=== PATIENT | male | born 1990 | race Caucasian/White ===

== ENCOUNTER 2017-01-31 10:11 | Emergency (ER) | payer OTHER ==
[2017-01-31 10:23] VITALS: RESP 18
[2017-01-31] MEDS ORDERED: SODIUM CHLORIDE 0.9% 1,000 ML IV STA ×2 (10:40)
[2017-01-31] MEDS ORDERED: ONDANSETRON 4 MG/2 ML VIAL IVP STA (10:40)
[2017-01-31] MEDS ORDERED: ACETAMINOPHEN IV (For NPO) 1,000 MG in SALINE 100 100ML.BAG IVPB STA (10:41)
[2017-01-31] MEDS ORDERED: RX INFO: IV CONTRAST WAS GIVEN 1 EACH MISC MISCELLANE PRN (10:41)
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
[2017-01-31 10:55] LABS: Basophils # (A) 0.1 k/uL (0-0.2); Basophils % (A) 1 %; CH 29.5; CHCM 34.5; Eosinophils # (A) 0.3 k/uL (0-0.7); Eosinophils % (A) 3 %; HCT 46.6 % (39.0-53.0); HDW 2.49; HGB 15.2 gm/dL (13.0-17.5); Luc # (Auto) 0.16; Luc % (Auto) 2; Lymphocytes # (A) 1.9 k/uL (1.0-4.8); Lymphocytes % (A) 20 %; MCH 28.1 pg (25.0-35.0); MCHC 32.7 g/dL (31.0-37.0); MCV 85.9 fL (80.0-100.0); Mean Platelet Volume 7.2; Monocytes # (A) 0.5 k/uL (0-1.0); Monocytes % (A) 5 %; Neutrophils # (A) 6.8 k/uL (1.3-7.7); Neutrophils % (A) 70 %; RBC 5.43 m/uL (4.30-5.90); RDW 14.1 % (11.5-15.5); WBC 9.7 k/uL (3.8-10.6); WBC (Perox) 9.42
[2017-01-31 11:07] LABS: ALT 48 U/L (21-72); AST 19 U/L (17-59); Alkaline Phosphatase 58 U/L (38-126); Amylase 102 U/L (30-110); Anion Gap 7 mmol/L; Blood Urea Nitrogen 8 mg/dL (9-20); Calcium 9.4 mg/dL (8.4-10.2); Carbon Dioxide 24 mmol/L (22-30); Chloride 107 mmol/L (98-107); Glucose 98 mg/dL (74-99); Non-African American GFR(MDRD) >60 (>60 ml/min/1.73 sqM); Potassium 4.8 mmol/L (3.5-5.1); Sodium 138 mmol/L (137-145); Total Bilirubin 0.4 mg/dL (0.2-1.3); Total Protein 6.9 g/dL (6.3-8.2)
--- NOTE | 2017-01-31 11:29 | CT ---
EXAMINATION TYPE: CT abdomen pelvis w con DATE OF EXAM: 01/31/2017 COMPARISON: NONE INDICATION: pain and constipation for 1 week DLP: 614.4 mGycm, Automated exposure control for dose reduction was used. CONTRAST: 100 mL of Omnipaque 300. Study performed without Oral Contrast TECHNIQUE: Axial images were obtained from above the diaphragm to the pubic rami in the axial plane a t 5 mm thick sections. Reconstructed images are reviewed on the computer in the coronal plane. FINDINGS: Limited CT sections are obtained the lung bases. The lung bases are clear. CT ABDOMEN: Liver: There are multiple scattered hypodensities throughout the liver, largest measuring 1.9 cm in s ize posterior right upper lobe liver. Findings are likely related to multiple hepatic cysts. Spleen: Normal Pancreas: Normal Adrenal glands: The adrenal glands are normal. Gallbladder: Normal Kidneys: No masses are evident. No hydronephrosis is present. No cysts are present. Delayed images were obtained through the kidneys, which remain unremarkable. Aorta: Normal Inferior vena cava: Normal. CT PELVIS: Loops of bowel within the abdomen and pelvis are normal. Significant fecal retention is not evide nt. Colon is decompressed. There are a few scattered diverticuli present. Appendix: Normal as visualized. Urinary bladder: Normal. Genitourinary structures: There is normal Osseous structures: No suspicious lytic or sclerotic lesions. IMPRESSIONS: 1. No acute process. 2. Multiple hepatic cysts.
[2017-01-31 11:36] LABS: Appearance,Urine Clear (Clear); Bilirubin,Urine Negative (Negative); Glucose,Urine (UA) Negative (Negative); Ketones,Urine Negative (Negative); Leukocyte Esterase,Urine Negative (Negative); Nitrite,Urine Negative (Negative); PH, Urine 7.5 (5.0-8.0); Protein,Urine Negative (Negative); Specific Gravity,Urine 1.034 (1.001-1.035); UA Billing (MACRO vs. MICRO) CHEM; Urobilinogen,Urine <2.0 mg/dL (<2.0)
[2017-01-31] MEDS ORDERED: KETOROLAC 30 MG/ML 1 ML VIAL IVP STA (11:40)
[2017-01-31] MEDS ORDERED: HYDROmorphone 1 MG/ML 1 ML SYRINGE IVP STA (11:40)
[2017-01-31 12:26] VITALS: BP 116/60; PULSE 57; TEMP 98.3
== END 2017-01-31 12:44 | disposition home or self-care (01) ==
LOC: EC 10:11
DX: K85.90 Acute pancreatitis without necrosis or infection, unspecified (principal); F17.200 Nicotine dependence, unspecified, uncomplicated
CPT/HCPCS: 99284; 96374; 96375 ×3; 96361 ×2; 36415; 80053; 82150; 83690; 85025; 81003; 74177; J2405; J1885; J1170; Q9967; J0131

== ENCOUNTER 2017-02-25 10:51 | Day surgery (SDC) | payer OTHER ==
[2017-02-24 09:40] VITALS: BMI 25.4
[~2017-02-25 10:51] MED LIST: LACTATED RINGERS 1,000 ML IV SCH; LIDOCAINE 1% 20 ML VIAL (10MG/ML) FOR IV START INTRADERMA PRN
[2017-02-25 11:01] VITALS: RESP 18; TEMP 98.3
[2017-02-25] MEDS ORDERED: PROPOFOL 10 MG/ML 20 ML VIAL IV ONE (11:27)
--- NOTE | 2017-02-25 11:53 | P.PCN ---
Date of Procedure: 02/25/17 Procedure(s) Performed: Procedure: Esophagogastroduodenoscopy and biopsy. Preoperative diagnosis: Epigastric pain, rule out peptic ulcer disease. Postoperative diagnosis: 1. Small sliding hiatal hernia but no obvious esophagitis or complicated reflux disease. 2. Mild antral gastritis with no ulcers or gastric outlet obstruction. 3. Multiple biopsies obtained from the duodenum, antrum and esophagus. Preparation and sedation: Was provided by anesthesia. Brief clinical history: The patient is a 26-year-old male who was recently evaluated in the office for epigastric pain. He was started on omeprazole and scheduled for this evaluation to rule out peptic ulcer disease or other pathology. No alarm symptoms. Has been gradually improving with omeprazole. Procedure: With the patient on his left lateral decubitus position and after informed consent and adequate sedation I passed the Olympus-GIF 160 video upper endoscope through the cricopharyngeus down the esophagus. GE junction was around 40-41 cm from the incisors and there was a small sliding hiatal hernia. The endoscope was then passed into the stomach which was associated with air and inspected in detail including the retroflex view in the cardia. There was minimal mottling and erythema in the antrum but no ulcers or erosions. Pyloric channel, duodenal bulb, post bulbar area and descending duodenum showed no obvious abnormalities. Because of his symptoms, I obtained biopsies from the duodenum, antrum and esophagus then the endoscope was withdrawn. The patient tolerated the procedure well. The patient tolerated the procedure well. Plan: The patient was reassured. Will await biopsy results. He is scheduled to follow-up in the office later this month and I asked that he keeps this appointment. We will keep you updated on his progress.
[2017-02-25 12:15] VITALS: BP 109/70; PULSE 74
== END 2017-02-25 12:35 | disposition home or self-care (01) ==
LOC: ORWHC2ENDO 10:51
DX: K21.0 Gastro-esophageal reflux disease with esophagitis (principal); K29.50 Unspecified chronic gastritis without bleeding; F17.200 Nicotine dependence, unspecified, uncomplicated; K44.9 Diaphragmatic hernia without obstruction or gangrene; Z79.899 Other long term (current) drug therapy
CPT/HCPCS: 88305; 88342; 43239; J2704

== ENCOUNTER → 2017-02-26 | Outpatient (CLI) | payer OTHER ==
--- NOTE | 2017-02-26 07:47 | MR ---
EXAMINATION TYPE: MR liver wo/w con DATE OF EXAM: 02/26/2017 COMPARISON: CT 01/31/2017 HISTORY: 26-year-old male hepatomegaly Technique: Multiplanar, multisequence images of the abdomen were obtained before and after administra tion of 10 mL intravenous Gadavist gadolinium contrast. FINDINGS: The liver is mildly enlarged measuring 19.3 cm craniocaudal. Opposed phase T1-weighted sequences show no evidence for fatty infiltration. There are numerous T2 hyperintense and T1 dark, nonenhancing lesions within the liver. The largest is in the posterior right hepatic dome measuring up to 2.1 cm but the majority measure 1.2 cm and small er. No central dot sign is evident. Spleen is upper limits of normal in size and 13.5 cm. Bile duct is normal caliber. Portal venous system is patent. Gallbladder, adrenal glands, kidneys, and pancreas appear within normal limits. Later postcontrast sequences show concentrated hypointense gadolinium in the renal collecting systems . No abdominal ascites fluid, upper abdominal lymphadenopathy, or gross bowel abnormality is seen. Port acaval lymph node measures up to 9 mm. There is an enhancing T2 bright lesion within the T12 vertebral body most likely representing an atyp ical hemangioma. IMPRESSION: 1. Mild hepatomegaly. 2. Too numerous to count small cysts within the liver, the majority measuring 1.2 cm and smaller but the largest measuring up to 2.1 cm. These could represent developmental cysts. Other differential con siderations include von Meyenburg complexes and less likely Caroli's disease. Clinically correlate. 3. No other specific abnormality is seen.
== END | disposition home or self-care (01) ==
LOC: RADMRIMAIN 06:30
PROVIDERS: ATTEND Physician Assistant
DX: R16.0 Hepatomegaly, not elsewhere classified (principal); K76.89 Other specified diseases of liver
CPT/HCPCS: 74183; A9581

== ENCOUNTER 2018-07-06 09:23 | Emergency (ER) | payer OTHER ==
[2018-07-06 09:32] VITALS: BP 119/75; PULSE 86; RESP 18; TEMP 98.5
[2018-07-06] MEDS ORDERED: SULFAMETH-TMP DS STARTER PACK 2 TAB BTL PO STA (09:50)
[2018-07-06] MEDS ORDERED: DIPH,PERTUS(ACELL)TETVAC-LF 0.5 ML VIAL IM ONE (09:55)
--- NOTE | 2018-07-06 09:57 | ED ---
Upper Extremity HPI - General Chief Complaint: Extremity Injury, Upper Stated Complaint: LAC RT PINKIE FINGER Time Seen by Provider: 07/06/18 09:38 Source: patient, RN notes reviewed, old records reviewed Mode of arrival: ambulatory Limitations: no limitations - History of Present Illness Initial Comments: Patient is a 28-year-old male who presents for his room today with a laceration 3 days on his right pinky finger. Patient reports that he works at [employer]. He frequently gets cut. Patient presents today with complaints of pain and redness reading from the right pinky finger up to the third knuckle. Patient states he is concerned there may be piece of metal within the finger. He states his tetanus is up-to-date. Patient reports pain with flexion of the finger.Patient denies any recent fever, chills, shortness of breath, chest pain , back pain, abdominal pain, nausea vomiting, numbness or tingling, dysuria or hematuria, constipation or diarrhea, headaches or visual changes, or any other current symptoms - Related Data Home Medications Medication Instructions Recorded Confirmed Acetaminophen Tab [Tylenol Tab] 1,000 mg PO Q6HR PRN 07/06/18 07/06/18 Ibuprofen [Motrin Ib] 600 mg PO Q6H PRN 07/06/18 07/06/18 Previous Rx's Medication Instructions Recorded Sulfamethox-Tmp 800-160Mg [Bactrim 2 tab PO Q12HR #40 tab 07/06/18 DS 800-160 mg] Allergies Allergy/AdvReac Type Severity Reaction Status Date / Time No Known Allergies Allergy Verified 07/06/18 09:43 Review of Systems ROS Statement: Those systems with pertinent positive or pertinent negative responses have been documented in the HPI. ROS Other: All systems not noted in ROS Statement are negative. Past Medical History Past Medical History: GERD/Reflux, Skin Disorder Additional Past Medical History / Comment(s): tinea versicolor, generalized abd. pain, cysts on liver-having MRI Wednesday History of Any Multi-Drug Resistant Organisms: None Reported Past Surgical History: No Surgical Hx Reported Additional Past Surgical History / Comment(s): DENTAL EXTRACTIONS Past Anesthesia/Blood Transfusion Reactions: No Reported Reaction Past Psychological History: Depression Smoking Status: Current every day smoker Past Alcohol Use History: None Reported Past Drug Use History: Marijuana - Past Family History Mother Family Medical History: Asthma Father Family Medical History: No Reported History General Exam - General Exam Comments Initial Comments: 28-year-old male. Alert and oriented 3. Patient appears in no acute distress. Limitations: no limitations General appearance: alert, in no apparent distress Head exam: Present: atraumatic, normocephalic, normal inspection Eye exam: Present: normal appearance, PERRL, EOMI. Absent: scleral icterus, conjunctival injection, periorbital swelling ENT exam: Present: normal exam, mucous membranes moist Neck exam: Present: normal inspection. Absent: tenderness, meningismus, lymphadenopathy Respiratory exam: Present: normal lung sounds bilaterally. Absent: respiratory distress, wheezes, rales, rhonchi, stridor Cardiovascular Exam: Present: regular rate, normal rhythm, normal heart sounds. Absent: systolic murmur, diastolic murmur, rubs, gallop, clicks Right Forearm Wrist exam: Present: normal inspection, full ROM Hand Wrist exam: Present: tenderness, swelling (over 5th digit DIP to PIP ), erythema (5th digit). Absent: normal inspection, laceration, ecchymosis, deformity, crepitus Hand L/R Back: 1 - less than 1cm scabbed wound, surrounding erythema extending to PIP Neuro motor exam: Present: wrist extension intact, thumb opposition intact, thumb IP flexion intact, fingers 2-5 abduction intact Back exam: Present: normal inspection Neurological exam: Present: alert, oriented X3, CN II-XII intact Psychiatric exam: Present: normal affect, normal mood Skin exam: Present: warm, dry, intact, normal color. Absent: rash Course Vital Signs 07/06/18 09:29 Temperature 98.5 F Pulse Rate 86 Respiratory 18 Rate Blood Pressure 119/75 O2 Sat by Pulse 98 Oximetry Medical Decision Making - Medical Decision Making 28-year-old male presents to return today with complaints of irritation and swelling over the right fifth digit. Range of motion of the finger at this time. At this time I am not as concern for flexor tenosynovitis, with good range of motion. That he does have some pain with range of motion due to swelling. No palpable abscess at this time. But there is some evidence of sinus. We'll on Bactrim. Given referral for him surgeon. I discussed that if the redness and pains and swelling continues to worsen over the next 24-48 hours Patient should return immediately need IV antibiotic. Patient agrees to treatment plan will comply. Return parameters were discussed. - Radiology Data Radiology results: report reviewed No acute osseous normality seen. Her some soft tissue swelling of the fifth finger. Disposition Clinical Impression: Cellulitis, finger, Wound infection Disposition: HOME SELF-CARE Condition: Good Instructions (If sedation given, give patient instructions): Cellulitis (ED) Additional Instructions: Patient has a follow-up with orthopedic hand specialist within the next 1-2 days. If the area of redness and swelling worsens despite taking antibiotics within 2 days please return for reevaluation. Patient should take Motrin Tylenol. Warm soaks of the finger and hand as well. Prescriptions: Sulfamethox-Tmp 800-160Mg [Bactrim DS 800-160 mg] 2 tab PO Q12HR #40 tab Is patient prescribed a controlled substance at d/c from ED?: No Referrals: Brayden Herrera MD [Primary Care Provider] - 1-2 days Mert Ashley DO [Medical Doctor] - 1-2 days Time of Disposition: 10:27
--- NOTE | 2018-07-06 10:06 | XR ---
EXAMINATION TYPE: XR hand complete RT DATE OF EXAM: 07/06/2018 COMPARISON: NONE HISTORY: 28-year-old male infected cut on pinky finger, pain TECHNIQUE: 3 views FINDINGS: There is some soft tissue swelling of the fifth finger. No acute fracture, subluxation, or dislocation. No retained radiopaque foreign body. No soft tissue air. IMPRESSION: No acute osseous abnormality seen.
== END 2018-07-06 10:44 | disposition home or self-care (01) ==
LOC: EC 09:23
DX: S61.206A Unspecified open wound of right little finger without damage to nail, initial encounter (principal); L08.9 Local infection of the skin and subcutaneous tissue, unspecified; L03.011 Cellulitis of right finger; F17.200 Nicotine dependence, unspecified, uncomplicated; Z23 Encounter for immunization; W45.8XXA Other foreign body or object entering through skin, initial encounter; Y92.69 Other specified industrial and construction area as the place of occurrence of the external cause; Y99.0 Civilian activity done for income or pay
CPT/HCPCS: 90471; 90715; 99283

== ENCOUNTER 2019-12-05 17:34 | Emergency (ER) | payer OTHER ==
[2019-12-05 17:42] VITALS: BP 136/82; PULSE 84; RESP 18; TEMP 98.1
[2019-12-05] MEDS ORDERED: HYDROcodone/APAP 5-325MG 1 EACH TAB PO STA (17:52)
[2019-12-05] MEDS ORDERED: PENICILLIN VK 500MG STARTER 4 TAB BTL PO STA (17:52)
--- NOTE | 2019-12-05 17:54 | ED ---
General Adult HPI - General Chief complaint: Dental/Oral Stated complaint: dental pain Time Seen by Provider: 12/05/19 17:43 Source: patient, RN notes reviewed Mode of arrival: ambulatory Limitations: no limitations - History of Present Illness Initial comments: 29-year-old male presents to the emergency department for dental pain. Patient states he fractured his tooth yesterday. Patient states he has "soft teeth." Patient states he made an appointment with his dentist but he started swelling on the right side of his face and decided to come to the ER. Patient does not have a fever or chills. Denies any trismus. Denies sublingual edema. Denies difficulty swallowing. Denies any swelling of the neck.Patient has no other complaints at this time including shortness of breath, chest pain, abdominal pain, nausea or vomiting, headache, or visual changes. - Related Data Home Medications Medication Instructions Recorded Confirmed Acetaminophen Tab [Tylenol Tab] 1,000 mg PO Q6HR PRN 07/06/18 07/06/18 Ibuprofen [Motrin Ib] 600 mg PO Q6H PRN 07/06/18 07/06/18 Previous Rx's Medication Instructions Recorded Sulfamethox-Tmp 800-160Mg [Bactrim 2 tab PO Q12HR #40 tab 07/06/18 DS 800-160 mg] Ibuprofen [Motrin] 600 mg PO Q6HR PRN #20 tab 12/05/19 Penicillin V Potassium [Pen Vee K] 500 mg PO Q6H 10 Days #40 tablet 12/05/19 Allergies Allergy/AdvReac Type Severity Reaction Status Date / Time No Known Allergies Allergy Verified 12/05/19 17:42 Review of Systems ROS Statement: Those systems with pertinent positive or pertinent negative responses have been documented in the HPI. ROS Other: All systems not noted in ROS Statement are negative. Past Medical History Past Medical History: GERD/Reflux, Skin Disorder Additional Past Medical History / Comment(s): tinea versicolor, cysts on liver History of Any Multi-Drug Resistant Organisms: None Reported Past Surgical History: No Surgical Hx Reported Additional Past Surgical History / Comment(s): DENTAL EXTRACTIONS Past Anesthesia/Blood Transfusion Reactions: No Reported Reaction Past Psychological History: Depression Smoking Status: Current every day smoker Past Alcohol Use History: None Reported Past Drug Use History: Marijuana - Past Family History Mother Family Medical History: Asthma Father Family Medical History: No Reported History General Exam Limitations: no limitations General appearance: alert, in no apparent distress Head exam: Present: atraumatic, normocephalic, normal inspection Eye exam: Present: normal appearance, PERRL, EOMI. Absent: scleral icterus, conjunctival injection, periorbital swelling ENT exam: Present: mucous membranes moist, TM's normal bilaterally, normal external ear exam, other (Patient does have mild edema on the right cheek area.). Absent: normal oropharynx (Patient has very poor dentition generally. Patient has fracture of tooth 4. Palpation and direct visualization along the gumline does not reveal any abscess. No sublingual edema.) Neck exam: Present: normal inspection, full ROM. Absent: tenderness, meningismus, lymphadenopathy Respiratory exam: Present: normal lung sounds bilaterally. Absent: respiratory distress, wheezes, rales, rhonchi, stridor Cardiovascular Exam: Present: regular rate, normal rhythm, normal heart sounds. Absent: systolic murmur, diastolic murmur, rubs, gallop, clicks Course Vital Signs 12/05/19 17:41 Temperature 98.1 F Pulse Rate 84 Respiratory 18 Rate Blood Pressure 136/82 O2 Sat by Pulse 100 Oximetry Medical Decision Making - Medical Decision Making Vitals are stable. Patient is afebrile. Patient was started on penicillin. He will follow up with primary care as well as his dentist. He will return for any worsening symptoms. Disposition Clinical Impression: Pain, dental Disposition: HOME SELF-CARE Condition: Good Instructions (If sedation given, give patient instructions): Dental Abscess (ED) Additional Instructions: Please take Motrin and Tylenol alternating every 3 hours as needed for pain. Apply ice to the right side of the face. Take antibiotic as directed. Prescriptions were sent to your pharmacy. Return to the emergency department for any worsening symptoms or fevers. Otherwise follow-up at your dentist appointment. Prescriptions: Ibuprofen [Motrin] 600 mg PO Q6HR PRN #20 tab PRN Reason: Pain Penicillin V Potassium [Pen Vee K] 500 mg PO Q6H 10 Days #40 tablet Is patient prescribed a controlled substance at d/c from ED?: No Referrals: Brayden Herrera MD [Primary Care Provider] - 1-2 days Time of Disposition: 17:53
== END 2019-12-05 18:03 | disposition home or self-care (01) ==
LOC: EC 17:34
DX: S02.5XXA Fracture of tooth (traumatic), initial encounter for closed fracture (principal); F17.200 Nicotine dependence, unspecified, uncomplicated; X58.XXXA Exposure to other specified factors, initial encounter
CPT/HCPCS: 99282